=== PATIENT | female | born 1940 | race Caucasian/White ===

== ENCOUNTER 2018-04-30 07:11 | Outpatient (CLI) | payer OTHER | END 2018-04-30 07:15 | disposition home or self-care (01) | LOC: SONOGRAMA 07:11 | DX: E04.2 Nontoxic multinodular goiter (principal) ==

== ENCOUNTER 2018-11-13 07:17 | Outpatient (CLI) | payer OTHER | END 2018-11-13 07:22 | disposition home or self-care (01) | LOC: SONOGRAMA 07:17 | DX: E04.2 Nontoxic multinodular goiter (principal) ==